=== PATIENT | female | born 1925 | race Asian ===

== ENCOUNTER → 2016-12-18 | Outpatient (CLI) | payer MEDICARE, OTHER ==
[~2016-12-18] VITALS: Ht 137.2 cm; Wt 35.0 kg
[~2016-12-18] MED LIST: ADV250 IH; ALBU8.5H IH; AZIT250T6 PO; FURO20 PO; KDUR10 PO; MAGN200T5 PO; MULT-959 PO; PRED20TA3 PO
[2016-12-18 12:01] VITALS: BP 110/51
== END | disposition home or self-care (01) ==
LOC: SRCNTR 11:46
PROVIDERS: ATTEND Internal Medicine Critical Care Medicine
DX: J44.9 Chronic obstructive pulmonary disease, unspecified (principal); J47.1 Bronchiectasis with (acute) exacerbation; R64 Cachexia; J96.10 Chronic respiratory failure, unspecified whether with hypoxia or hypercapnia
CPT/HCPCS: G0463

== ENCOUNTER → 2017-03-02 | Outpatient (CLI) | payer MEDICARE, OTHER ==
[~2017-03-02] VITALS: Ht 137.2 cm; Wt 31.5 kg
[~2017-03-02] MED LIST changes: -ADV250 IH; -AZIT250T6 PO; -FURO20 PO; -KDUR10 PO; -MAGN200T5 PO; -PRED20TA3 PO
[2017-03-02 11:23] VITALS: BP 118/53
== END | disposition home or self-care (01) ==
LOC: SRCNTR 11:15
PROVIDERS: ATTEND Internal Medicine Critical Care Medicine
DX: J96.10 Chronic respiratory failure, unspecified whether with hypoxia or hypercapnia (principal); J44.1 Chronic obstructive pulmonary disease with (acute) exacerbation; J47.1 Bronchiectasis with (acute) exacerbation; R64 Cachexia
CPT/HCPCS: G0463

== ENCOUNTER → 2017-03-27 | Outpatient (CLI) | payer MEDICARE, OTHER | END | disposition home or self-care (01) | LOC: RADPV 08:49 | PROVIDERS: ATTEND Internal Medicine Critical Care Medicine | DX: J18.9 Pneumonia, unspecified organism (principal); J98.11 Atelectasis; I70.0 Atherosclerosis of aorta; J47.9 Bronchiectasis, uncomplicated | CPT/HCPCS: 71020 ==

== ENCOUNTER → 2017-04-02 | Outpatient (CLI) | payer MEDICARE, OTHER ==
[~2017-04-02] VITALS: Ht 137.2 cm; Wt 35.0 kg
[2017-04-02 13:19] VITALS: BP 114/55
== END | disposition home or self-care (01) ==
LOC: SRCNTR 12:47
PROVIDERS: ATTEND Internal Medicine Critical Care Medicine
DX: J96.10 Chronic respiratory failure, unspecified whether with hypoxia or hypercapnia (principal); J44.1 Chronic obstructive pulmonary disease with (acute) exacerbation; J47.1 Bronchiectasis with (acute) exacerbation; R64 Cachexia
CPT/HCPCS: G0463

== ENCOUNTER → 2017-06-10 | Outpatient (CLI) | payer MEDICARE, OTHER ==
[~2017-06-10] VITALS: Ht 142.2 cm; Wt 33.5 kg
[~2017-06-10] MED LIST changes: +BENZ-26 PO
[2017-06-10 14:04] VITALS: BP 130/55
== END | disposition home or self-care (01) ==
LOC: SRCNTR 13:43
PROVIDERS: ATTEND Internal Medicine
DX: J44.9 Chronic obstructive pulmonary disease, unspecified (principal); J96.10 Chronic respiratory failure, unspecified whether with hypoxia or hypercapnia; R64 Cachexia
CPT/HCPCS: G0463

== ENCOUNTER → 2017-08-19 | Outpatient (CLI) | payer MEDICARE, OTHER ==
[~2017-08-19] VITALS: Ht 137.2 cm; Wt 32.5 kg
[~2017-08-19] MED LIST changes: -ALBU8.5H IH; +ALBU8.5H8 IH; -BENZ-26 PO; +BENZ-51 PO
[2017-08-19 11:46] VITALS: BP 124/58
== END | disposition home or self-care (01) ==
LOC: SRCNTR 11:35
PROVIDERS: ATTEND Internal Medicine Critical Care Medicine
DX: J47.1 Bronchiectasis with (acute) exacerbation (principal); R64 Cachexia; J96.10 Chronic respiratory failure, unspecified whether with hypoxia or hypercapnia; R62.7 Adult failure to thrive
CPT/HCPCS: G0463